=== PATIENT | female | born 1960 | race Caucasian/White ===

== ENCOUNTER 2017-01-02 11:51 | Outpatient (CLI) | payer BC ==
[2017-01-02 12:56] LABS: CKMB 0.8 ng/mL (0-6.6)
== END 2017-01-02 11:52 | disposition home or self-care (01) ==
LOC: MADLABBHPM 11:51
PROVIDERS: ATTEND Family Medicine
DX: R07.89 Other chest pain (principal)
CPT/HCPCS: 36415; 82553; 84484; 93005; 93010

== ENCOUNTER 2020-02-02 21:31 | Emergency (ER) | payer BC, OTHER ==
[~2020-02-02 21:31] MED LIST: Iopamidol 370 76% 125 ML VIAL FS ONE
[2020-02-02 22:42] LABS: #Basophils 0.1 thou/uL (0.0-0.2); #Eosinphils 0.1 thou/uL (0.0-0.7); #Lymphocytes 1.8 thou/uL (1.20-3.40); #Monocytes 0.4 thou/uL (0.11-0.59); #Neutrophils 3.1 thou/uL (1.40-6.50); %Basophils 0.9 % (0.0-1.0); %Eosinophils 1.2 % (0.0-10.0); %Lymphocytes 32.8 % (21.0-51.0); %Monocytes 8.1 % (0.0-10.0); %Neutrophils 56.9 % (42.0-75.0); Mean Corpuscular HGB CONC 32.4 g/dL (32.0-36.0); Mean Corpuscular Volume 92.6 fL (78.0-98.0); Mean Platelet Volume 6.5 fL (7.4-10.4); Platelet Count 130 thou/uL (130-400); RBC Distribution Width 12.7 % (11.5-14.5); White Blood Cell (WBC) Count 5.4 thou/uL (4.8-10.8)
[2020-02-02 22:46] LABS: Bilirubin Negative (Negative); Blood, Urine Negative (Negative); Clarity Clear (Clear); Glucose, Urine (Dipstick) Negative (Negative); Leukocyte Negative (Negative); Nitrite Negative (Negative); Protein, Urine (Dipstick) Negative (Neg-Trace); Urobilinogen 0.2 mg/dL (Less than 2)
[2020-02-02] MEDS ORDERED: Aspirin 325 MG TAB ONE (22:49)
[2020-02-02 23:02] LABS: ALT (SGPT) 17 U/L (8-55); AST (SGOT) 22 U/L (5-34); Albumin 3.9 g/dL (3.4-4.8); Alkaline Phosphatase 130 U/L (40-110); Anion Gap 13 mmol/L (10-20); BUN (Urea Nitrogen) 10 mg/dL (9.8-20.1); Bilirubin, Total 0.6 mg/dL (0.2-1.2); CK (CPK) 37 U/L (29-168); Calc. Creatinine Clearance 0 mL/min (70-130); Calcium 9.2 mg/dL (7.8-10.44); Carbon Dioxide 23 mmol/L (23-31); Chloride 110 mmol/L (98-107); Estimated GFR-MDRD 79; Glucose 129 mg/dL (80-115); Lipase 28 U/L (8-78); Potassium 3.4 mmol/L (3.5-5.1); Protein, Total 6.9 g/dL (6.0-8.3); Sodium 143 mmol/L (136-145)
--- NOTE | 2020-02-03 00:09 | CT ---
CT ANGIOGRAM THORAX WITH CONTRAST: (CTA pulmonary angiogram) DATE: 02/03/2020 11:31 PM HISTORY: 59-year-old female with dyspnea TECHNIQUE: IV injection of iodinated contrast. Scan acquisition timing attempted to coincide with iodinated contrast bolus reaching maximal density in pulmonary arteries. 3-D MIP reconstructions. FINDINGS: There is no pulmonary thromboembolism in the pulmonary trunk, left and right main pulmonary arteries, upper lobe pulmonary arteries and their branches, or the first order branches of bilateral lower lobe pulmonary arteries. However, there is significant breathing motion artifact such that the second order and more distal br anches of the bilateral lower lobe pulmonary arteries cannot be well evaluated. No pleural effusion or pneumothorax. Left apical pulmonary scar. No consolidation. No thoracic aortic dissection or aneurysm. Ectasia of ascending thoracic aorta. 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 Suture lines around narrowed stomach. Clips in gallbladder fossa. IMPRESSION: 1. Difficult to evaluate lower lobe pulmonary artery branches for pulmonary thromboembolism. 2. No pulmonary thromboembolism identified elsewhere. 3. No acute findings. 4. Status post bariatric surgery and cholecystectomy. 5. Status post left mastectomy with tissue signal inspector device.
== END 2020-02-03 02:26 | disposition short-term general hospital (02) ==
LOC: MADERS 21:31
DX: R07.9 Chest pain, unspecified (principal); R06.00 Dyspnea, unspecified
CPT/HCPCS: 71275; 80053; 81003; 82550; 83605; 83690; 83880; 84484; 85025; 87804; 93005; Q9967; U0001